=== PATIENT | female | born 1945 | race Caucasian/White ===

== ENCOUNTER 2018-12-16 20:06 | Observation (INO) ==
[2018-12-16] MEDS ORDERED: GI Cocktail 40 ML EACH PO ONE (20:27)
[2018-12-16] MEDS ORDERED: Aspirin 81 MG TAB.CHEW PO ONE (20:40)
--- NOTE | 2018-12-16 20:41 | Emergency Department Note ---
Disposition Clinical Impression: Chest pain Qualifiers: Chest pain type: unspecified Qualified Code(s): R07.9 - Chest pain, unspecified Disposition: Admitted As Inpatient Condition: Good Referrals: Mick Green MD [Primary Care Provider] - Forms: ED Satisfaction Letter Time of Disposition: 21:36 General Adult HPI - General Chief complaint: ED Chest Pain Stated complaint: CP Time Seen by Provider: 12/16/18 20:19 Source: patient Mode of arrival: wheelchair Limitations: no limitations Nursing Notes Reviewed: Yes Vital Signs Reviewed: Yes - History of Present Illness HPI Narrative: Patient is a 73 -year-old female that presents the emergency department with complaints of chest pain. Patient states is located in the left side of her chest and radiates into her left shoulder and scapular region. Patient states that it is at times a stinging sensation and will go up into her neck. Patient states that she has not had any nausea, vomiting, diaphoresis or shortness of breath. Patient denies any prior cardiac history. Patient states that she has never required a stent for cardiac catheterization. Patient states that she does have a history of hypertension, hyperlipidemia and diabetes. Patient states that she is otherwise feeling well. Patient states that her pain started approximately 48 hours ago and has been intermittent since that time. Pain Scale: 7 - Related Data Home Medications Medication Instructions Recorded Confirmed Acetaminophen [Pain Reliever] 1,000 mg PO BID 12/16/18 12/16/18 Allopurinol [Zyloprim] 300 mg PO DAILY 12/16/18 12/16/18 Aspirin [Adult Aspirin] 81 mg PO DAILY 12/16/18 12/16/18 Benazepril HCl [Lotensin] 20 mg PO DAILY 12/16/18 12/16/18 Cholecalciferol (Vitamin D3) 4,000 unit PO DAILY 12/16/18 12/16/18 [Vitamin D3] Famotidine [Heartburn Prevention] 20 mg PO DAILY 12/16/18 12/16/18 Lactobacillus Acidophilus 1 each PO DAILY 12/16/18 12/16/18 [Acidophilus] [place]-3 Fatty Acids [Fish Oil] 300 mg PO DAILY 12/16/18 12/16/18 metFORMIN [Glucophage] 1,000 mg PO BIDWM 12/16/18 12/16/18 Allergies Allergy/AdvReac Type Severity Reaction Status Date / Time codeine Allergy Chest Pain Verified 12/16/18 20:09 Neomycin Allergy Rash Verified 12/16/18 20:09 Sulfa (Sulfonamide Allergy See Verified 12/16/18 20:09 Antibiotics) Comments All systems ED: reviewed and negative except as stated. Constitutional: Denies: fever Cardiovascular: Reports: chest pain Respiratory: Denies: dyspnea Gastrointestinal: Denies: abdominal pain, nausea, vomiting Neurological: Denies: weakness, numbness, paresthesias Past Medical History - Past Medical History Medical history: Reports: diabetes, hyperlipidemia, hypertension Psychiatric history: Reports: no psych history - Social History Smoking Status: Never smoker Alcohol use: Reports: none Drug use: Reports: none Physical Exam - General Limitations: no limitations General appearance: alert, in no apparent distress - Head Head exam: atraumatic, normocephalic - Eye Eye exam: Present: normal appearance, EOMI - Neck Neck exam: Present: normal inspection, full ROM, trachea midline - Respiratory Respiratory exam: Present: normal lung sounds bilaterally. Absent: respiratory distress, wheezes - Cardiovascular Cardiovascular exam: Present: regular rate, normal rhythm, normal heart sounds, +S1, +S2 - Abdominal Exam Abdominal exam: Present: soft, Non-Tender, normal bowel sounds - Neurological Exam Neurological exam: Present: alert, oriented X3 - Psychiatric Psychiatric exam: Present: normal affect, normal mood - Skin Skin exam: Present: warm, dry, intact Course Vital Signs Temperature 98.2 F 12/16/18 20:09 Pulse Rate 66 12/16/18 20:09 Respiratory Rate 18 12/16/18 20:09 Blood Pressure 142/61 12/16/18 20:09 O2 Sat by Pulse Oximetry 94 12/16/18 20:09 Temperature 98.2 F 12/16/18 20:09 Pulse Rate 64 12/16/18 21:06 Respiratory Rate 16 12/16/18 21:06 Blood Pressure 119/59 12/16/18 21:06 O2 Sat by Pulse Oximetry 97 12/16/18 21:06 Oxygen Delivery Oxygen Delivery Room Air Medical Decision Making - MDM Narrative Medical decision making narrative: Due the patient is not emergency Department with reports of left sided chest marimar n we will obtain basic laboratory testing, chest x-ray and EKG. Patient states that she also has a history of reflux and has missed her famotidine over the past few days so we will give her a GI cocktail as well as aspirin. Due the patient having a heart score of 5. Patient will be admitted to the hospital for further evaluation and management. Troponin is negative. EKG did not show any acute ischemic changes. Chest x-ray shows atelectasis versus small pleural effusion. The rate of her laboratory testing is relatively unremarkable. I called and spoke the admitting hospitalist Dr. Martinez and he is except the patient to their service. Patient be admitted to hospital this time for further evaluation and management. Patient was chest pain-free at the time of admission. - Medical Records Medical records reviewed: Yes I reviewed the patient's medical records. - Lab Data Lab results reviewed: Yes I reviewed the patient's lab results. Result diagrams: 12/16/18 20:43 12/16/18 20:43 Lab Results 12/16/18 12/16/18 12/16/18 Range/Units 20:43 20:43 20:43 WBC 8.0 (4.3-11.1) K/mcL RBC 3.91 (3.82-4.97) M/mcL Hgb 12.2 (11.5-15.4) g/dL Hct 38.1 (35.3-44.9) % MCV 97.4 (83.0-100.0) fL MCH 31.2 (28.0-33.3) pg MCHC 32.0 (31.6-35.5) g/dL RDW 15.2 H (11.5-14.5) % Plt Count 233 (140-400) K/mcL MPV 10.2 (9.4-12.4) fL Immature Gran % 0.2 (0-4) % Seg Neutrophils % 47.7 % Lymphocytes % 37.1 % Monocytes % 9.8 % Eosinophils % 4.6 % Basophils % 0.6 % Neutrophils # 3.8 (1.6-8.9) K/mcL Lymphocytes # 3.0 (0.6-4.6) K/mcL Monocytes # 0.8 (0.0-1.3) K/mcL Eosinophils # 0.4 (0.0-0.6) K/mcL Basophils # 0.1 (0.0-0.2) K/mcL PT 10.4 (9.4-12.1) Seconds INR 0.9 APTT 34.0 (26.0-36.0) Seconds Sodium 139 (136-145) mEq/L Potassium 4.0 (3.5-5.1) mEq/L Chloride 101 (98-107) mEq/L Carbon Dioxide 31 H (23-29) mEq/L BUN 21 (8-23) mg/dL Creatinine 1.00 (0.60-1.20) mg/dL Est GFR ( Amer) > 60 (> 60) Est GFR (Non-Af Amer) 54 L (> 60) BUN/Creatinine Ratio 21 (6-26) Glucose 120 H (70-105) mg/dL Calculated Osmolality 292 (280-300) Calcium 10.1 (8.6-10.3) mg/dL Troponin I < 0.03 (< 0.04) ng/mL - Radiology Data Radiology results reviewed: Yes I reviewed the patient's radiology results. Chest X-Ray 12/16/18 20:21 IMPRESSION: Increased density along the left hemidiaphragm laterally. This is nonspecific and may represent a small area of atelectasis. A small pleural effusion would be difficult to exclude. No acute abnormality otherwise D/ / Uday Salgado / Uday Salgado Interpreting Provider: Uday Salgado - EKG Data EKG #1 EKG attestation: Yes I reviewed and interpreted this EKG. EKG results narrative: EKG shows a sinus rhythm at a rate of 57 bpm, SD interval of 193, QRS duration 82, QTC of 387. No evidence of STEMI on EKG. This is compared to previous EKG on 02/19/10.
[2018-12-16 20:56] LABS: Basophils # 0.1 K/mcL (0.0-0.2); Basophils % 0.6 %; Eosinophils # 0.4 K/mcL (0.0-0.6); Eosinophils % 4.6 %; Hematocrit 38.1 % (35.3-44.9); Hemoglobin 12.2 g/dL (11.5-15.4); Immature Granulocytes % 0.2 % (0-4); Lymphocytes % 37.1 %; Mean Corpuscular Hemoglobin 31.2 pg (28.0-33.3); Mean Corpuscular Volume 97.4 fL (83.0-100.0); Mean Platelet Volume 10.2 fL (9.4-12.4); Monocytes # 0.8 K/mcL (0.0-1.3); Monocytes % 9.8 %; Neutrophils # 3.8 K/mcL (1.6-8.9); Platelet Count 233 K/mcL (140-400); Red Blood Count 3.91 M/mcL (3.82-4.97); Red Cell Distribution Width 15.2 % (11.5-14.5); Segmented Neutrophils % 47.7 %
[2018-12-16 21:04] LABS: INR 0.9; Prothrombin Time 10.4 Seconds (9.4-12.1)
--- NOTE | 2018-12-16 21:08 | Emergency Department Note ---
Disposition Clinical Impression: ACS (acute coronary syndrome) Disposition: Admitted As Inpatient Condition: Fair Forms: ED Satisfaction Letter Time of Disposition: 21:08 General Adult HPI - General Chief complaint: ED Chest Pain Stated complaint: CP Time Seen by Provider: 12/16/18 20:19 Source: patient Mode of arrival: wheelchair Limitations: no limitations Nursing Notes Reviewed: Yes Vital Signs Reviewed: Yes - History of Present Illness HPI Narrative: Attestation note: Patient was seen with the emergency medicine resident/nurse practitione r/physician fleet administrative assistant/transitional resident/medical student: Dr. VINNY CONTRERAS. This includes well any procedures performed for this significant portion thereof which are to include EKG and bedside ultrasound I have personally performed a face to face evaluation on this patient. I have reviewed and agree with history and physical examination patient management and disposition. Briefly the salient points of the case are as follows: 73-year-old female heart score of 5 which is high risk presents with epigastric discomfort chest discomfort radiating to the neck and shoulder no diaphoresis no vomiting some nausea she has chronic bilateral extremity edema chest is clear EKG shows no acute ischemic changes. Chest x-ray troponin we discussed the patient admission would be highly desirable did show decision-making using the [facility] chest pain decisional total questions were answered she will stay aspirin was given. Provided 35 minutes critical care service this patient. Admission disposition pending Pain Scale: 7 - Related Data Home Medications Medication Instructions Recorded Confirmed Acetaminophen [Pain Reliever] 1,000 mg PO BID 12/16/18 12/16/18 Allopurinol [Zyloprim] 300 mg PO DAILY 12/16/18 12/16/18 Aspirin [Adult Aspirin] 81 mg PO DAILY 12/16/18 12/16/18 Benazepril HCl [Lotensin] 20 mg PO DAILY 12/16/18 12/16/18 Cholecalciferol (Vitamin D3) 4,000 unit PO DAILY 12/16/18 12/16/18 [Vitamin D3] Famotidine [Heartburn Prevention] 20 mg PO DAILY 12/16/18 12/16/18 Lactobacillus Acidophilus 1 each PO DAILY 12/16/18 12/16/18 [Acidophilus] [place]-3 Fatty Acids [Fish Oil] 300 mg PO DAILY 12/16/18 12/16/18 metFORMIN [Glucophage] 1,000 mg PO BIDWM 12/16/18 12/16/18 Allergies Allergy/AdvReac Type Severity Reaction Status Date / Time codeine Allergy Chest Pain Verified 12/16/18 20:09 Neomycin Allergy Rash Verified 12/16/18 20:09 Sulfa (Sulfonamide Allergy See Verified 12/16/18 20:09 Antibiotics) Comments Constitutional: Denies: fever Cardiovascular: Reports: chest pain Respiratory: Denies: dyspnea Gastrointestinal: Denies: abdominal pain, nausea, vomiting Neurological: Denies: weakness, numbness, paresthesias Past Medical History - Past Medical History Medical history: Reports: diabetes, hyperlipidemia, hypertension Psychiatric history: Reports: no psych history - Social History Smoking Status: Never smoker Alcohol use: Reports: none Drug use: Reports: none Physical Exam - General Limitations: no limitations General appearance: alert, in no apparent distress Course Vital Signs Temperature 98.2 F 12/16/18 20:09 Pulse Rate 66 12/16/18 20:09 Respiratory Rate 18 12/16/18 20:09 Blood Pressure 142/61 12/16/18 20:09 O2 Sat by Pulse Oximetry 94 12/16/18 20:09 Temperature 98.2 F 12/16/18 20:09 Pulse Rate 57 12/16/18 20:30 Respiratory Rate 16 12/16/18 20:30 Blood Pressure 141/62 12/16/18 20:30 O2 Sat by Pulse Oximetry 97 12/16/18 20:30 Oxygen Delivery Oxygen Delivery Room Air Medical Decision Making - Lab Data Result diagrams: 12/16/18 20:43 Lab Results 12/16/18 Range/Units 20:43 WBC 8.0 (4.3-11.1) K/mcL RBC 3.91 (3.82-4.97) M/mcL Hgb 12.2 (11.5-15.4) g/dL Hct 38.1 (35.3-44.9) % MCV 97.4 (83.0-100.0) fL MCH 31.2 (28.0-33.3) pg MCHC 32.0 (31.6-35.5) g/dL RDW 15.2 H (11.5-14.5) % Plt Count 233 (140-400) K/mcL MPV 10.2 (9.4-12.4) fL Immature Gran % 0.2 (0-4) % Seg Neutrophils % 47.7 % Lymphocytes % 37.1 % Monocytes % 9.8 % Eosinophils % 4.6 % Basophils % 0.6 % Neutrophils # 3.8 (1.6-8.9) K/mcL Lymphocytes # 3.0 (0.6-4.6) K/mcL Monocytes # 0.8 (0.0-1.3) K/mcL Eosinophils # 0.4 (0.0-0.6) K/mcL Basophils # 0.1 (0.0-0.2) K/mcL
[2018-12-16 21:18] LABS: BUN/Creatinine Ratio 21 (6-26); Blood Urea Nitrogen 21 mg/dL (8-23); Calcium 10.1 mg/dL (8.6-10.3); Carbon Dioxide 31 mEq/L (23-29); Chloride 101 mEq/L (98-107); Glucose 120 mg/dL (70-105); Osmolality,Calculated 292 (280-300); Sodium 139 mEq/L (136-145); Troponin I < 0.03 ng/mL (< 0.04); eGFR For African Americans > 60 (> 60); eGFR For Non-African Americans 54 (> 60)
[2018-12-16] MEDS ORDERED: Naloxone 0.4 MG/ML INJ IVP PRN (22:18)
--- NOTE | 2018-12-16 22:18 | Internal Med History&Physical ---
Date of Encounter: 12/16/18 Time of Encounter: 22:18 Internal Medicine - H&P: HPI Chief complaint: Chest pain History of present illness: Ms. Jimenez is a 73 year old female with PMH of diabetes, hyperlipidemia, hypertension who presented to the emergency department with complaints of left- sided chest pain, pressure in character that radiated to the left shoulder. The patient denies shortness of breath, diaphoresis, palpitation, orthopnea, paroxysmal nocturnal dyspnea and progressive worsening of lower extremity edema. The patient also denies history of coronary artery disease. The patient was evaluated by the ER staff and EKG revealed no ischemic EKG changes, first set of cardiac enzymes was was no significant abnormalities the patient was admitted for further evaluation and management and to rule out acute coronary syndrome. Past Med Surg Social Fam HX - Past Medical History Medical history: diabetes, hyperlipidemia, hypertension Psychiatric history: no psych history - Social History Smoking Status: Never smoker Alcohol use: none Drug use: none - Family History Mother Living Status: Age at : 67 Cause of : CHF Hx Family Cardiac Disorders: Yes (CHF) Hx Family Respiratory Disorders: No Hx Family Cancer: No Hx Family GI Disorders: No Hx Family Genitourinary Disorders: No Hx Family Endocrine Disorder: No Hx Family Musculoskeletal Disorders: Yes (Arthritis) Hx Family Neuromuscular Disorders: No Hx Family Neurologic Disorders: No Hx Family HEENT Disorders: No Hx Family Autoimmune Disorders: No Hx Family Psychosocial Disorders: No Hx Family Medical Disorders: No Internal Medicine - H&P: Meds Acetaminophen [Pain Reliever] 1,000 mg PO BID 12/16/18 [History] Allopurinol [Zyloprim] 300 mg PO DAILY 12/16/18 [History] Aspirin [Adult Aspirin] 81 mg PO DAILY 12/16/18 [History] Benazepril HCl [Lotensin] 20 mg PO DAILY 12/16/18 [History] Cholecalciferol (Vitamin D3) [Vitamin D3] 4,000 unit PO DAILY 12/16/18 [History] Lactobacillus Acidophilus [Acidophilus] 1 each PO DAILY 12/16/18 [History] [place]-3 Fatty Acids [Fish Oil] 300 mg PO DAILY 12/16/18 [History] metFORMIN [Glucophage] 1,000 mg PO BIDWM 12/16/18 [History] Atorvastatin [Lipitor] 20 mg PO HS #60 tablet 07/22/19 [Rx] Isosorbide MONOnitrate (24 HR) [Imdur] 30 mg PO DAILY #30 tab.er.24h 12/18/18 [Rx] Omeprazole [PriLOSEC] 20 mg PO DAILY #30 cap 12/18/18 [Rx] Allergy/AdvReac Type Severity Reaction Status Date / Time codeine Allergy Chest Pain Verified 12/16/18 20:09 Neomycin Allergy Rash Verified 12/16/18 20:09 Sulfa (Sulfonamide Allergy See Verified 12/16/18 20:09 Antibiotics) Comments All Systems PM: A 10-system review of systems was performed and is negative for pertinent findings except as documented above in the HPI. - Constitutional Vitals: Temp Pulse Resp BP Pulse Ox 98.2 F 64 16 119/59 97 12/16/18 20:09 12/16/18 21:06 12/16/18 21:06 12/16/18 21:06 12/16/18 21:06 General appearance: Present: A&O X 3 Exam: ` - Head Head exam: Present: atraumatic, normocephalic - Respiratory Respiratory exam: Present: CTAB. Absent: accessory muscle use, rales, rhonchi, wheezes - Cardiovascular Cardiovascular exam: Present: RRR, +S1, +S2. Absent: diastolic murmur, gallop, rubs, systolic murmur - GI/Abdominal GI/Abdominal exam: Present: normal bowel sounds, soft, no peritoneal signs. Absent: distended, tenderness - Extremities Exam Extremities exam: Present: warm, radial pulses palpable and symmetrical. Absent: calf tenderness, cyanotic, pedal edema Internal Med - H&P Results - Labs CBC & Chem 7: 12/17/18 04:20 12/17/18 04:20 Labs: Short CBC 12/16/18 Range/Units 20:43 WBC 8.0 (4.3-11.1) K/mcL Hgb 12.2 (11.5-15.4) g/dL Hct 38.1 (35.3-44.9) % Plt Count 233 (140-400) K/mcL Neutrophils # 3.8 (1.6-8.9) K/mcL BMP 12/16/18 20:43 Sodium 139 Potassium 4.0 Chloride 101 Carbon Dioxide 31 H BUN 21 Creatinine 1.00 Glucose 120 H Calcium 10.1 Cardiac Enzymes 12/16/18 Range/Units 20:43 Troponin I < 0.03 (< 0.04) ng/mL - Impressions ITS Impressions Chest X-Ray 12/16/18 20:21 IMPRESSION: Increased density along the left hemidiaphragm laterally. This is nonspecific and may represent a small area of atelectasis. A small pleural effusion would be difficult to exclude. No acute abnormality otherwise D/ / Uday Salgado / Uday Salgado Interpreting Provider: Uday Salgado - Assessment and Plan (1) Chest pain Status: Acute Assessment and plan: - Chest pain R/O ACS DD *Muskuloskeletal CP - myofascial strain, costochondritis *GERD *Esophageal spasm *Pericarditis - unlikely *Pneumonia - no infiltrate on CXR PLAN: - cardiac enzymes x 2 q 8 hr - EKG now and in AM - ASA - O2 by NC to keep SpO2 greater than 92% - UA - CBCD, BMP in AM - Fasting lipids - Heparin 5000 U SQ BID - 2D Echo Qualifiers: Chest pain type: unspecified Qualified Code(s): R07.9 - Chest pain, unspecified (2) Hypertension Status: Chronic Assessment and plan: We will continue home medication, we will monitor blood pressure while inpatient and adjust regimen accordingly Qualifiers: Hypertension type: unspecified Qualified Code(s): I10 - Essential (primary) hypertension (3) Diabetes mellitus Status: Chronic Assessment and plan: We will start the patient and insulin sliding scale with moderate coverage Qualifiers: Diabetes mellitus type: type 2 Diabetes mellitus longterm insulin use: without flight dynamicist use Diabetes mellitus complication status: without complication Qualified Code(s): E11.9 - Type 2 diabetes mellitus without complications (4) Hyperlipidemia Status: Chronic Assessment and plan: We will obtain fasting lipid profile in a.m. Qualifiers: Hyperlipidemia type: unspecified Qualified Code(s): E78.5 - Hyperlipidemia, unspecified - Time Spent With Patient Total time spent is greater than 50% in coordination of care (as documented) at patient's floor/unit and/or counseling patient:
[2018-12-16] MEDS ORDERED: Ondansetron 4 MG/2 ML VIAL IVP PRN (22:24)
[2018-12-17 04:57] LABS: Basophils % 0.5 %; Eosinophils # 0.3 K/mcL (0.0-0.6); Eosinophils % 4.8 %; Hematocrit 36.1 % (35.3-44.9); Hemoglobin 11.5 g/dL (11.5-15.4); Immature Granulocytes % 0.2 % (0-4); Lymphocytes # 2.7 K/mcL (0.6-4.6); Mean Corpuscular HGB Conc 31.9 g/dL (31.6-35.5); Mean Corpuscular Hemoglobin 31.2 pg (28.0-33.3); Mean Corpuscular Volume 97.8 fL (83.0-100.0); Mean Platelet Volume 10.6 fL (9.4-12.4); Monocytes # 0.7 K/mcL (0.0-1.3); Monocytes % 11.3 %; Neutrophils # 2.7 K/mcL (1.6-8.9); Platelet Count 209 K/mcL (140-400); Red Blood Count 3.69 M/mcL (3.82-4.97); Segmented Neutrophils % 42.2 %; White Blood Count 6.5 K/mcL (4.3-11.1)
[2018-12-17 05:04] LABS: INR 0.9; Prothrombin Time 10.5 Seconds (9.4-12.1)
[2018-12-17 05:06] LABS: Activated Partial Thrombo Time 33.8 Seconds (26.0-36.0)
[2018-12-17 05:09] LABS: Alanine Aminotransferase 12 Units/L (7-52); Albumin 3.5 g/dL (3.5-5.7); Albumin/Globulin Ratio 1.5 (1.1-2.2); Alkaline Phosphatase 55 Units/L (34-104); Aspartate Amino Transferase 15 Units/L (13-39); BUN/Creatinine Ratio 23 (6-26); Bilirubin,Total 0.4 mg/dL (0.3-1.0); Blood Urea Nitrogen 21 mg/dL (8-23); Calcium 9.9 mg/dL (8.6-10.3); Carbon Dioxide 33 mEq/L (23-29); Chloride 102 mEq/L (98-107); Chol/HDL Ratio 4.5 (0-4.9); Cholesterol 181 mg/dL (< 200); Globulin 2.4 g/dL (2.4-3.5); Glucose 103 mg/dL (70-105); HDL Cholesterol 40 mg/dL (40-59); LDL Cholesterol,Calculated 101 mg/dL (0-99); Magnesium 1.5 mg/dL (1.6-2.6); Osmolality,Calculated 289 (280-300); Phosphorous 2.6 mg/dL (2.7-4.5); Potassium 3.9 mEq/L (3.5-5.1); Sodium 138 mEq/L (136-145); Total Protein 5.9 g/dL (6.4-8.9); Triglycerides 199 mg/dL (< 150); eGFR For African Americans > 60 (> 60); eGFR For Non-African Americans > 60 (> 60)
[2018-12-17] MEDS ORDERED: *HR* Dextrose 50 % in Water (Syg) 50 ML SYRINGE IVP PRN (06:37)
[2018-12-17] MEDS ORDERED: Dextrose Gel 15 GM/37.5 ML TUBE PO PRN ×2 (06:37)
[2018-12-17] MEDS ORDERED: D5% in Water 1,000 ML IVC PRN (06:37)
[2018-12-17 07:00] LABS: Estimated Average Glucose 134 mg/dl
[2018-12-17] MEDS ORDERED: Regadenoson 0.4 MG/5 ML SYRINGE IVP ONE (08:23)
--- NOTE | 2018-12-17 10:49 | Internal Med Progress Note ---
Hospitalist Progress Note - Encounter Date of Encounter: 12/17/18 Time of Encounter: 07:30 - Subjective Interval History: H&P reviewed. Patient with history of hypertension, hyperlipidemia, diabetes, is admitted for substernal chest pain. EKG did not show any acute changes but does have Q waves in inferior leads. ACS ruled out with serial troponins. Patient currently denies any further episodes of chest pain, N/V, SOB, or diaphoresis. It is also noted that her anterior chest wall is tender on palpation - Exam Vitals: Temp Pulse Resp BP Pulse Ox 97.8 F 581 6 131/60 93 12/17/18 07:17 12/17/18 07:17 12/17/18 07:17 12/17/18 07:17 12/17/18 07:17 Exam: General: Alert and oriented, not in acute distress. Cardiovascular:Normal S1 & S2, No JVD. Pulse regular. Anterior chest wall tenderness on palpation Lungs: clear to auscultation, no wheezes/rales Abdomen:Soft, non-tender, no rigidity. Extremities:No deformity or swelling Neurological:Normal cognition and motor skills. Non-focal - Assessment and Plan (1) Chest pain Current Visit: Yes Status: Acute Assessment and Plan: Atypical chest pain in a patient with CV risk factors, Q waves on EKG but no ST- T changes serial troponins -ve for echocardiogram and stress test keep on telemetry Continue aspirin (2) Hypertension Current Visit: Yes Status: Chronic Assessment and Plan: We will continue home medication (3) Diabetes mellitus Current Visit: Yes Status: Chronic Assessment and Plan: Well controlled, A1c 6.3 hold off on metformin, place on low-dose sliding scale (4) Hyperlipidemia Current Visit: Yes Status: Chronic Assessment and Plan: Resume home meds DVT Prophylaxis: EPCD - Time Spent with Patient Total time spent is greater than 50% in coordination of care (as documented) at patient's floor/unit and/or counseling patient: 25 - 35 minutes Plan of Care Discussed with: patient Internal Medicine: Result - Labs CBC & Chem 7: 12/17/18 04:20 12/17/18 04:20 Labs: Short CBC 12/16/18 12/17/18 Range/Units 20:43 04:20 WBC 8.0 6.5 (4.3-11.1) K/mcL Hgb 12.2 11.5 (11.5-15.4) g/dL Hct 38.1 36.1 (35.3-44.9) % Plt Count 233 209 (140-400) K/mcL Neutrophils # 3.8 2.7 (1.6-8.9) K/mcL BMP 12/16/18 12/17/18 20:43 04:20 Sodium 139 138 Potassium 4.0 3.9 Chloride 101 102 Carbon Dioxide 31 H 33 H BUN 21 21 Creatinine 1.00 0.91 Glucose 120 H 103 Calcium 10.1 9.9 Cardiac Enzymes 12/16/18 12/16/18 12/17/18 Range/Units 20:43 22:43 04:20 Troponin I < 0.03 < 0.03 < 0.03 (< 0.04) ng/mL Liver Function 12/17/18 Range/Units 04:20 Total Bilirubin 0.4 (0.3-1.0) mg/dL AST 15 (13-39) Units/L ALT 12 (7-52) Units/L Alkaline Phosphatase 55 (34-104) Units/L Albumin 3.5 (3.5-5.7) g/dL - ABG Interpretation ABG results: PT/INR, D-dimer PT 10.5 Seconds (9.4-12.1) 12/17/18 04:20 - Impressions Impressions Chest X-Ray 12/16/18 20:21 IMPRESSION: Increased density along the left hemidiaphragm laterally. This is nonspecific and may represent a small area of atelectasis. A small pleural effusion would be difficult to exclude. No acute abnormality otherwise D/ / Uday Salgado / Uday Salgado Interpreting Provider: Uday Salgado Consult Discharge Plan - Plan Referrals: Mick Green MD [Primary Care Provider] - (1) Chest pain Qualifiers: Chest pain type: unspecified Qualified Code(s): R07.9 - Chest pain, unspecified (2) Hypertension Qualifiers: Hypertension type: unspecified Qualified Code(s): I10 - Essential (primary) hypertension (3) Diabetes mellitus Qualifiers: Diabetes mellitus type: type 2 Diabetes mellitus watermelon harvesting supervisor insulin use: without [facility] use Diabetes mellitus complication status: without complication Qualified Code(s): E11.9 - Type 2 diabetes mellitus without complications (4) Hyperlipidemia Qualifiers: Hyperlipidemia type: unspecified Qualified Code(s): E78.5 - Hyperlipidemia, unspecified
[2018-12-17] MEDS: Aspirin Enteric Coated 81 MG Tablet PO SCH (10:57)
[2018-12-17] MEDS: Lisinopril 20 MG TABLET PO SCH (10:57)
[2018-12-17] MEDS: (Omega-3 Fatty Acids [Fish Oil] 300 MG) PO SCH (10:57)
[2018-12-17] MEDS: Lactobacillus 1 EACH CAP.SPRINK PO SCH (10:57)
[2018-12-17] MEDS: Famotidine 20 MG TABLET PO SCH (10:57)
[2018-12-17] MEDS: Pantoprazole 40 MG VIAL IVP SCH (10:57)
[2018-12-17] MEDS: Cholecalciferol (D-3) 1,000 UNIT (25MCG) TABLET PO SCH (10:57)
[2018-12-17] MEDS: Acetaminophen 325 MG TABLET PO PRN ×2 (11:06→19:46)
[2018-12-17] MEDS ORDERED: Insulin LISPRO 300 UNITS/3 ML VIAL SQ SCH (12:00)
[2018-12-17] MEDS: Insulin LISPRO 300 UNITS/3 ML VIAL SQ SCH ×2 (13:51→17:43)
[2018-12-17] MEDS ORDERED: GI Cocktail 40 ML EACH PO ONE (21:17)
[2018-12-18] MEDS: Insulin LISPRO 300 UNITS/3 ML VIAL SQ SCH ×2 (09:15→11:41)
[2018-12-18] MEDS: Cholecalciferol (D-3) 1,000 UNIT (25MCG) TABLET PO SCH (09:18)
[2018-12-18] MEDS: Lactobacillus 1 EACH CAP.SPRINK PO SCH (09:18)
[2018-12-18] MEDS: Famotidine 20 MG TABLET PO SCH (09:18)
[2018-12-18] MEDS: Pantoprazole 40 MG VIAL IVP SCH (09:18)
[2018-12-18] MEDS: Aspirin Enteric Coated 81 MG Tablet PO SCH (09:18)
[2018-12-18] MEDS: Lisinopril 20 MG TABLET PO SCH (09:18)
[2018-12-18] MEDS: (Omega-3 Fatty Acids [Fish Oil] 300 MG) PO SCH (09:19)
--- NOTE | 2018-12-18 12:14 | Cardiology Consult Note ---
Date of Encounter: 12/18/18 Time of Encounter: 12:01 Assessment and Plan (1) Abnormal stress test Current Visit: Yes Status: Acute Patient presented with atypical chest pain releived with GI cocktail. Multiple CRF including family history (multiple siblings with CAD), HTN, HLD, DM type II, and post menopause. Stress test completed and is equivocal. Minimal apical, mid-inferiolateral ischemia verses artifact. SDS 2. TTE- EF 60%. Mild tricuspid regurgitation. No PAH. Telemetry shows sinus bradycardia with avg HR 60. Min HR 47 bpm. Denies dizziness or lightheadedness. EKG sinus bradycardia. No acute ST changes. Medical management verses LHC discussed. LHC R/B/A reviewed. She would like to trial medical management and f/u closely out-pt. Start low dose imdur, asa, and statin. No bb with bradycardia. History of myalgia with pravastatin. Willing to trial atorvastatin. Agree with PPI. Out-pt f/u will be coordinated. Discussion w patient/family: The assessment and plan as outlined above was discussed with the patient and/or family members who expressed understanding and agreement. All questions were answered. Thank you for involving us in the care of your patient. Please call with any questions. History of Present Illness Consult date: 12/18/18 Requesting physician: Freddie Simpson Consult reason: Abnormal stress test Chief complaint: Chest pain History of present illness: Ms. Jimenez is a 73 year old female with past medical history of DM type II, HTN, HLD, and previous tobacco abuse who presented with c/o chest pain for two days. C/o left sided chest discomfort that felt like a gas bubble. SHe was given a GI cocktail with releif on admission but did have recurrent pain. Her pain was relieved again with GI cocktail and belching. She also had reproducible chest p ain during her stress test. Cardiology consulted for abnormal stress test. She denies SOB or palpitations. Denies dizziness or syncope. Denies prior history of CAD. Past Med Surg Social Fam HX - Past Medical History Medical history: diabetes, hyperlipidemia, hypertension Additional medical history: gout Psychiatric history: no psych history - Past Surgical History Surgical History: cholecystectomy Additional surgical history: Knee replacementx2. right hip replacement. - Social History Smoking Status: Former smoker Alcohol use: none Drug use: none - Family History Mother Living Status: Age at : 67 Cause of : CHF Hx Family Cardiac Disorders: Yes (CHF) Hx Family Respiratory Disorders: No Hx Family Cancer: No Hx Family GI Disorders: No Hx Family Genitourinary Disorders: No Hx Family Endocrine Disorder: No Hx Family Musculoskeletal Disorders: Yes (Arthritis) Hx Family Neuromuscular Disorders: No Hx Family Neurologic Disorders: No Hx Family HEENT Disorders: No Hx Family Autoimmune Disorders: No Hx Family Psychosocial Disorders: No Hx Family Medical Disorders: No - Additional Family History Additional family history: Pt has 13 siblings and 9 of them have history of cardiac disease. One brother at 37 due due to possible cardiac arrest. Medications and Allergies Acetaminophen [Pain Reliever] 1,000 mg PO BID 12/16/18 [History] Allopurinol [Zyloprim] 300 mg PO DAILY 12/16/18 [History] Aspirin [Adult Aspirin] 81 mg PO DAILY 12/16/18 [History] Benazepril HCl [Lotensin] 20 mg PO DAILY 12/16/18 [History] Cholecalciferol (Vitamin D3) [Vitamin D3] 4,000 unit PO DAILY 12/16/18 [History] Famotidine [Heartburn Prevention] 20 mg PO DAILY 12/16/18 [History] Lactobacillus Acidophilus [Acidophilus] 1 each PO DAILY 12/16/18 [History] [place]-3 Fatty Acids [Fish Oil] 300 mg PO DAILY 12/16/18 [History] metFORMIN [Glucophage] 1,000 mg PO BIDWM 12/16/18 [History] Allergy/AdvReac Type Severity Reaction Status Date / Time codeine Allergy Chest Pain Verified 12/16/18 20:09 Neomycin Allergy Rash Verified 12/16/18 20:09 Sulfa (Sulfonamide Allergy See Verified 12/16/18 20:09 Antibiotics) Comments All Systems Review: The remainder of the systems were reviewed and are negative Physical Examination Vital Signs, Last 4 Hours Temp Pulse Resp BP Pulse Ox 12/18/18 11:38 98.7 F 84 16 128/75 95 General: Conversant, No Apparent Distress HEENT: Atraumatic, Normocephaly, Mucus Membranes Moist Neck: No JVD, Normal carotid pulses Cardiac: Reg Rate and Rhythm, Normal S1 and S2, No Murmur Lungs: Normal Breath Sounds, No Wheeze, Rales, Rhonchi Neuro: Alert and responsive, No focal deficits noted Abdomen: Soft, Non-Tender Skin: No rashes noted on visualized skin Musculoskeletal: No Chest Wall Tenderness Extremities: No Clubbing, No Cyanosis, No Edema, Normal Pulses Results 12/17/18 04:20 12/17/18 04:20 Lab Results 12/17/18 21:39 Troponin I < 0.03 - Imaging and Cardiology Stress Test: report reviewed Echo: report reviewed - EKG Interpretation EKG results cardiology: personally reviewed Consult Discharge Plan - Plan Referrals: Mick Green MD [Primary Care Provider] - 12/25/18 1:45 pm
[2018-12-18] MEDS ORDERED: Isosorbide MONOnitrate (24 HR) 30 MG TAB.ER.24H PO SCH (12:30)
--- NOTE | 2018-12-18 12:40 | Discharge Summary ---
- NOTES TO OUTPATIENT PROVIDER Notes to Outpatient Provider: Follow-up with cardiology as outpatient Orders not resulted at time of discharge: Pending orders 12/16/18 20:21 ECG 12 lead ECG [ECG] Stat 12/17/18 01:44 NM sonia perf SPECT multi [NM] Routine 12/17/18 21:16 EKG [ECG 12 lead ECG] [ECG] Stat Date of Encounter: 12/18/18 Time of Encounter: 10:30 - Discharge Diagnosis (1) Chest pain Priority: Primary Status: Acute Qualifiers: Chest pain type: unspecified Qualified Code(s): R07.9 - Chest pain, unspecified (2) Hypertension Priority: Secondary Status: Chronic Qualifiers: Hypertension type: unspecified Qualified Code(s): I10 - Essential (primary) hypertension (3) Diabetes mellitus Priority: Secondary Status: Chronic Qualifiers: Diabetes mellitus type: type 2 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 Jimenez is a 73 year old female with history of hypertension, hyperlipidemia, diabetes, who was admitted for substernal chest pain. EKG did not show any acute changes but does have Q waves in inferior leads. ACS ruled out with serial troponins. Echocardiogram unremarkable. She had reproducible chest pain on palpation and symptomatic improvement with PPI hence the suspicion for ischemia was low. However, surprisingly, her stress test showed equivocal finding of minimal, reversible apical-mid inferiolateral perfusion defect ?ischemia vs. artifact. Seen in consultation with cardiology who offered possibility of medical management versus [facility]. She had elected to choose medical mx and decided to follow up with cardiology as outpatient. STatin and imdur were added, bb was not started in view of sinus bradycardia. Pepcid was also switched to PPI. Discharge discussed with: patient, nurse, websphere consultant - Time Spent with Patient Total time spent providing and/or coordinating discharge services: 31 mins - Discharge Medications Prescriptions: New Isosorbide MONOnitrate (24 HR) [Imdur] 30 mg PO DAILY #30 tab.er.24h Atorvastatin [Lipitor] 20 mg PO HS #60 tablet Omeprazole [PriLOSEC] 20 mg PO DAILY #30 cap Continued metFORMIN [Glucophage] 1,000 mg PO BIDWM [place]-3 Fatty Acids [Fish Oil] 300 mg PO DAILY Lactobacillus Acidophilus [Acidophilus] 1 each PO DAILY Cholecalciferol (Vitamin D3) [Vitamin D3] 4,000 unit PO DAILY Benazepril HCl [Lotensin] 20 mg PO DAILY Aspirin [Adult Aspirin] 81 mg PO DAILY Allopurinol [Zyloprim] 300 mg PO DAILY Acetaminophen [Pain Reliever] 1,000 mg PO BID Discontinued Famotidine [Heartburn Prevention] 20 mg PO DAILY Home Medications: Acetaminophen [Pain Reliever] 1,000 mg PO BID 12/16/18 [History] Allopurinol [Zyloprim] 300 mg PO DAILY 12/16/18 [History] Aspirin [Adult Aspirin] 81 mg PO DAILY 12/16/18 [History] Benazepril HCl [Lotensin] 20 mg PO DAILY 12/16/18 [History] Cholecalciferol (Vitamin D3) [Vitamin D3] 4,000 unit PO DAILY 12/16/18 [History] Lactobacillus Acidophilus [Acidophilus] 1 each PO DAILY 12/16/18 [History] [place]-3 Fatty Acids [Fish Oil] 300 mg PO DAILY 12/16/18 [History] metFORMIN [Glucophage] 1,000 mg PO BIDWM 12/16/18 [History] Atorvastatin [Lipitor] 20 mg PO HS #60 tablet 12/18/18 [Rx] Isosorbide MONOnitrate (24 HR) [Imdur] 30 mg PO DAILY #30 tab.er.24h 12/18/18 [Rx] Omeprazole [PriLOSEC] 20 mg PO DAILY #30 cap 12/18/18 [Rx] Allergies/Adverse Reactions: Allergy/AdvReac Type Severity Reaction Status Date / Time codeine Allergy Chest Pain Verified 12/16/18 20:09 Neomycin Allergy Rash Verified 12/16/18 20:09 Sulfa (Sulfonamide Allergy See Verified 12/16/18 20:09 Antibiotics) Comments Date of admission: 12/16/18 22:02 Primary care physician: Mick Green Consults: 12/18/18 09:42 Consult to Cardiology [CONS] Routine Comment: Consulting Provider: Cardiology Josefina Reason for Consult: equivocal stress test, ischemia vs. artifact Call Completed: Yes - Constitutional Vitals: Temp Pulse Resp BP Pulse Ox 98.7 F 84 16 128/75 95 12/18/18 11:38 12/18/18 11:38 12/18/18 11:38 12/18/18 11:38 12/18/18 11:38 General appearance: Present: A&O X 3 Exam: General: Alert and oriented, not in acute distress. Cardiovascular:Normal S1 & S2, No JVD. Pulse regular. Anterior chest wall tenderness on palpation Lungs: clear to auscultation, no wheezes/rales Abdomen:Soft, non-tender, no rigidity. Extremities:No deformity or swelling Neurological:Normal cognition and motor skills. Non-focal - Patient Status Disposition: Home, Self-Care Condition: Good Functional capacity at discharge: independent ambulation Overall status at discharge: patient is progressing back to baseline - Discharge Instructions Instructions: Chest Pain (DC), Diabetes Mellitus Type 2 in Adults (DC), Chronic Hypertension (DC) Follow Up With: Mick Green MD [Primary Care Provider] - 12/25/18 1:45 pm Mart Andrews CNP [Advanced Practice Nurse] - - Diet and Activity Activity: resume usual activities as tolerated Diet: diabetic diet
[2018-12-18 13:31] VITALS: BP 133/79
--- NOTE | 2018-12-18 14:28 | Electrocardiograph Report ---
[address] [address] Test Date: 2018-12-17 Pat Name: Kyung Jimenez Department: 113 Room: 3B43 Gender: F Lead Infrastructure Architect: : [id number] Requested By: Jorge Mathews Order Number: [id number] Reading MD: Gary Narayanan Measurements Intervals [place] Rate: 50 P: SC: 0 QRS: -40 QRSD: 112 T: 29 QT: 435 QTc: 407 Interpretive Statements sinus bradycardia MARKED LEFT AXIS DEVIATION LOW QRS VOLTAGE IN PRECORDIAL LEADS Poor R wave progression Electronically Signed On 12-18-2018 14:26:57 EDT by Gary Narayanan
--- NOTE | 2018-12-19 13:57 | Electrocardiograph Report ---
[place] [facility] Test Date: 2018-12-16 Pat Name: Kyung Jimenez Department: EXAM7 Room: 3B43 Gender: F Loan Consultant: : 1945 Requested By: Quincy Jimenez Order Number: [id number] Reading MD: Carmine Bajwa Measurements Intervals [place] Rate: 57 P: -15 IA: 193 QRS: -63 QRSD: 82 T: 44 QT: 397 QTc: 387 Interpretive Statements Sinus rhythm Inferior infarct, old Anterior infarct, old Electronically Signed On 12-19-2018 13:55:41 EDT by Carmine Bajwa
== END 2018-12-18 14:09 | disposition home or self-care (01) ==
LOC: 3BNU 20:06 → EMEROOARM 20:06 → SUATTDRO 22:02 → 3BNU 22:26
PROVIDERS: ADMIT Internal Medicine; ATTEND Internal Medicine